=== PATIENT | female | born 1960 | race Caucasian/White ===

== ENCOUNTER 2016-07-18 16:47 | Emergency (ER) | payer OTHER ==
[~2016-07-18] VITALS: Ht 167.6 cm; Wt 75.9 kg
[~2016-07-18 16:47] MED LIST: BUPR150T47 PO; LEVO125T5 PO; LSN5 PO
[2016-07-18 16:51] VITALS: TEMP 36.5; Ht 167.6 cm; Wt 75.9 kg
[2016-07-18] MEDS ORDERED: BUPR150T5 PO (17:02)
[2016-07-18] MEDS ORDERED: NAPR220T40 PO (17:03)
--- NOTE | 2016-07-18 18:03 | DIAGNOSTIC IMAGING REPORT ---
SACRUM COCCYX MIN 2 VIEWS CLINICAL HISTORY: fall, low back pain. Sacral pain. COMPARISON STUDY: None. FINDINGS: At the distal sacrum there appears to be a transverse fracture demonstrating 2 mm of anterior displacement. Soft tissue swelling at this location. The coccyx appears aligned. Mild degenerative changes within the bilateral sacroiliac joints. The lower lumbar spine is intact. IMPRESSION: Slightly displaced distal sacral fracture. Electronically signed by: Emmett Patel M.D. 07/18/2016 6:01 PM Dictated Date/Time: 07/18/2016 6:00 PM
[2016-07-18] MEDS ORDERED: NORCO 5/325MG HOME PACK PO ONE (18:45)
[2016-07-18] MEDS ORDERED: HYDR-5688 PO (18:59)
--- NOTE | 2016-07-18 18:59 | EMERGENCY ROOM VISIT NOTE ---
ED Visit Note First contact with patient: 17:00 CHIEF COMPLAINT: Tailbone pain HISTORY OF PRESENT ILLNESS: This 56-year-old female patient presents to the emergency department ambulatory complaining of pain in the tailbone after a fall which occurred this morning. The patient states that she slipped on the steps and fell onto her buttocks. The patient rates the pain as sharp and 7/ 10. The pain is primarily in her tailbone area and radiates up into the back. The patient has taken no medication for the pain. No previous fractures to the area. The patient has not had blood in their stool. The patient has are not had difficulty with bowel or bladder functions. The patient is able to walk and denies numbness or tingling to the lower extremities. She denies any other injuries. She did not hit her head when she fell. REVIEW OF SYSTEMS: A 6 system review of systems was completed with positives and pertinent negatives listed in the HPI. ALLERGIES: No known drug allergies MEDICATIONS: See med list PMH: Hypertension, hypothyroidism SOCIAL HISTORY: The patient lives locally with family. Nonsmoker. PHYSICAL EXAM: VITALS: Vitals are noted on the nurse's note and reviewed by myself. Vital signs stable. GENERAL: This is a 56-year-old female, in no acute distress, nondiaphoretic, well-developed well-nourished. MUSCULOSKELETAL: The patient is tender to palpation over the coccyx. There is tenderness over the sacrum. There is no tenderness to palpation over the thoracic or lumbar, thoracic or cervical spine. No erythema, edema, or abscesses present. Full range of motion of the bilateral lower extremities. Strength 5/5 and equal in the bilateral lower extremities. Peripheral pulses 2+. NEURO: Patient was alert and oriented to person place and time. Normal sensation to light and sharp touch. No focal neurologic deficits. RADIOGRAPHIC FINDINGS: SACRUM COCCYX MIN 2 VIEWS CLINICAL HISTORY: fall, low back pain. Sacral pain. COMPARISON STUDY: None. FINDINGS: At the distal sacrum there appears to be a transverse fracture demonstrating 2 mm of anterior displacement. Soft tissue swelling at this location. The coccyx appears aligned. Mild degenerative changes within the bilateral sacroiliac joints. The lower lumbar spine is intact. IMPRESSION: Slightly displaced distal sacral fracture. EMERGENCY DEPARTMENT COURSE: The patient was evaluated as above. X-ray of the sacrum/coccyx was performed and did show a distal sacral fracture. Conservative measures were discussed with the patient. She was given a course of [place] for pain. The [place] prescription drug monitoring program was queried and no red flags were identified. She was instructed to follow-up with her primary care provider or return here if she notices any blood in her stools or other new/concerning symptoms. She verbalized understanding of my assessment and treatment plan and was discharged home in good condition. DIAGNOSIS: Distal sacral fracture Problem List Surgical Problems: (1) Hx of cholecystectomy Status: Resolved Current/Historical Medications Scheduled Bupropion Hcl (Bupropion Hcl Xl), 150 MG PO DAILY Levothyroxine Sodium (Levothyroxine Sodium), 125 MCG PO DAILY Lisinopril (Lisinopril), 5 MG PO DAILY Naproxen Sodium (Aleve), 440 MG PO PRN UD Scheduled PRN Hydrocodone/Acetaminophen 5MG/325MG ([place] 5MG/325MG), 1-2 TABLET PO Q4H PRN for Pain Allergies Coded Allergies: No Known Allergies (Unverified , 09/11/14) Vital Signs Date Time Temp Pulse Resp B/P Pulse Ox O2 Delivery O2 Flow Rate FiO2 07/18/16 19:08 88 16 114/94 98 07/18/16 16:51 36.5 69 16 147/84 98 Room Air Medications Administered Medications (Trade) Dose Ordered Sig/Carmen Route Start Time Stop Time Status Last Admin Dose Admin Acetaminophen/ Hydrocodone Bitart ([place] 5/325mg Home Pack) 1 homepack UD ONCE PO 07/18/16 18:45 07/18/16 18:46 DC 07/18/16 19:08 1 HOMEPACK Departure Information Impression Primary Impression: Sacral fracture Dispostion Home / Self-Care Condition GOOD Prescriptions Hydrocodone/Acetaminophen 5MG/325MG ([place] 5MG/325MG) Tab 1-2 TABLET PO Q4H Y for Pain, #10 TAB For Initial Treatment Prov: Karlee Trejo PA-C 07/18/16 Referrals Sharon Emerson M.D. (PCP) Patient Instructions My [facility] Additional Instructions You have been treated in the Emergency Department for a coccyx fracture. You have been prescribed [place] to be used for pain control. This is a narcotic medication. You cannot drive or consume alcohol while on this medicine. This medicine should only be used for pain that cannot be controlled with over-the- counter pain medicines. For pain control, you can use the following [id number] medicines (if >12 yo): - Regular strength (325mg/tab) Tylenol (acetaminophen) 2 tabs every 4-6 hours as needed. Do not exceed 12 tablets in a 24 hour period. Avoid taking more than 4 grams (4000 mg) of Tylenol per day. This includes any other sources of acetaminophen you may take on a regular basis. - Regular strength (200 mg/tab) Advil (ibuprofen) 1-2 tabs every 4-6 hours as needed. Do not exceed a dose of 3200 mg per day. If this is an acute injury, ice can be applied to the area of pain for the first 3 days to help decrease pain and inflammation. After the first 3 days, a heating pad can be used over the area for continued soothing relief. Follow-up with your primary care provider this week as needed. Return to the Emergency Department if your current symptoms worsen despite treatment course outlined above, or if you develop any of the following symptoms : intractable pain despite aforementioned treatment course, loss of control of your bowel or bladder, numbness or tingling in your groin, or development of a fever. Problem Qualifiers Primary Impression: Sacral fracture Encounter type: initial encounter Zone of sacrum fracture: unspecified portion of sacrum Fracture type: closed Qualified Codes: S32.10XA - Unspecified fracture of sacrum, initial encounter for closed fracture
[2016-07-18 19:08] VITALS: BP 114/94; PULSE 88; O2SAT 98
== END 2016-07-18 19:10 | disposition home or self-care (01) ==
LOC: C.EDB 16:50 → C.EDD 19:10
DX: S32.10XA Unspecified fracture of sacrum, initial encounter for closed fracture (principal); W01.0XXA Fall on same level from slipping, tripping and stumbling without subsequent striking against object, initial encounter; I10 Essential (primary) hypertension; E03.9 Hypothyroidism, unspecified; Z79.899 Other long term (current) drug therapy; Z90.49 Acquired absence of other specified parts of digestive tract